=== PATIENT | female | born 1970 | race Caucasian/White ===

== ENCOUNTER 2018-11-15 15:33 | Emergency (ER) | payer OTHER ==
[~2018-11-15] VITALS: Ht 165.1 cm; Wt 57.4 kg
[2018-11-15 15:43] VITALS: Ht 165.1 cm; Wt 57.4 kg
--- NOTE | 2018-11-15 17:38 | ERD ---
ER Documentation Chief Complaint Chief Complaint lower back pain s/p fall off step stool, hit back on stool HPI 47-year-old female, previously healthy, presents to the emergency department, complaining of sacrococcygeal pain after falling from a chair 3 days ago. The patient has been taking ibuprofen without improvement of the symptoms, the pain is dull, constant, 6/10. The patient also reports a painful lump in the anal area that has been there for more than 1 week. The patient reports history of hemorrhoids. She denies fever, chills, no distal weakness, no rectal bleeding. ROS All systems reviewed and are negative except as per history of present illness. Medications Home Meds Active Scripts Hydrocortisone* Topical (Hydrocortisone* Topical) 2.5%-28.3 Gm Cream..g., 1 APPLIC TOP BID for 7 Days, #1 TUB Prov:EZ READ MD 11/15/18 Ibuprofen* (Motrin*) 600 Mg Tab, 600 MG PO Q6H PRN for PAIN AND OR ELEVATED TEMP, #20 TAB Prov:EZ READ MD 11/15/18 Allergies Allergies: Coded Allergies: No Known Allergy (Unverified , 11/15/18) PMhx/Soc Medical and Surgical Hx: pt denies Medical Hx, pt denies Surgical Hx History of Surgery: Yes (Breast augmentation) Anesthesia Reaction: No Hx Neurological Disorder: No Hx Respiratory Disorders: No Hx Cardiac Disorders: No Hx Psychiatric Problems: No Hx Miscellaneous Medical Probl: No Hx Alcohol Use: No Hx Substance Use: No Hx Tobacco Use: No Smoking Status: Never smoker FmHx Family History: No diabetes, No coronary disease Physical Exam Vitals Vital Signs Date Temp Pulse Resp B/P (MAP) Pulse Ox O2 O2 Flow FiO2 Time Delivery Rate 11/15/18 98.8 59 18 11/54 (40) 97 15:43 Physical Exam Patient is in no acute distress, vital signs stable. Alert and fully oriented. EYES: PERRLA, EOMI, Sclera and conjunctiva appear normal. EARS: Canals clear, tympanic membranes WNL THROAT: Normal oropharynx. NECK: Supple, No lymphadenopathy. Full ROM without pain or tenderness. HEART: RRR, no rubs, murmurs, clicks or gallops. LUNGS: Clear to auscultation. ABDOMEN: Soft, non-tender without masses or hepatosplenomegaly. Rectal: 1cm lump without thrombosis. EXTREMITIES: No edema bilaterally. BACK: Normal inspection, no bruises, no rashes, no deformity, decreased range of motion for lateral rotation and flexion. No vertebral tenderness, bilateral lower muscle spasm. NEURO: Cranial nerves grossly intact, no motor or sensory deficit Results 24 hrs Laboratory Tests Test 11/15/18 17:47 POC Beta HCG, Qualitative NEGATIVE Patient: ERIC MCKEON : 1970 Age: 47 Sex: F MR #: [id number] Merged With [facility] #: [id number] DOS: 11/15/18 1733 Ordering MD: EZ READ MD Location: [facility]TE Room/Bed: PROCEDURE: XR Sacrum. CLINICAL INDICATION: Sacral pain. TECHNIQUE: AP, inlet and lateral views of the sacral spine were performed. The images were reviewed on a PACS workstation. COMPARISON: None available FINDINGS: The sacroiliac joints are normal in appearance. There is no joint space widening, narrowing or erosive changes. There is no significant subchondral sclerosis. The sacrum and sacral ala intact. The visualized pelvic bones unremarkable. There is no evidence of fracture. IMPRESSION: 1. Normal radiographs of the sacrum. No evidence of fracture. Procedures/MDM At the time of discharge, patient nontoxic, ambulating, vital signs stable, no gross neurologic deficit. differential diagnosis include but not limited to: lumbar sprain/strain, sciatica, herniated disk, UTI less likely pyelo, kidney stone. Neurovascular exam grossly intact. no clinical findings suggestive of acute infectious process, no acute deformity, no edema, no rashes. Physical examination and clinical presentation consistent most likely with contusion of the sacrococcygeal area and nonthrombosed hemorrhoid. Results and clinical impression discussed with the patient who agrees with management. The patient is stable to be treated outpatient and will be discharged home with recommendations and close monitoring The patient was informed that the evaluation in the emergency department has been done to rule out an acute emergency, therefore, chronic conditions like malignancy or autoimmune diseases have not been evaluated; therefore, the patient was instructed to follow up with the primary care provider in the next 48h. If symptoms persist, worsen or new symptoms develop, then patient should return to the ED immediately. Instructions explained and given to patient with acknowledgment and demonstrated understanding. Disclaimer: Inadvertent spelling and grammatical errors are likely due to EHR/dictation software use and do not reflect on the overall quality of patient care. Also, please note that the electronic time recorded on this note does not necessarily reflect the actual time of the patient encounter. Departure Diagnosis: Primary Impression: Hemorrhoid Additional Impression: Contusion of sacrococcygeal region Condition: Stable Additional Instructions: Muchas janine por [facility] para [place] servicio. Esperamos que en [place] visita a la rodolfo de emergencia [place] problema medico haya sido solucionado y que se sienta mucho mejor. Para estar seguros que [place] mejoria sigue en proceso, le pedimos el favor de hacer [place] cele de seguimiento medico con [place] doctor primario en los proximos 2-4 pride. Lleve con usted estos documentos y las medicinas recetadas. Si peter sintomas empeoran, NO SE ESPERE, por favor regrese a rodolfo de emergencia INMEDIATAMENTE. En adina que usted no tenga un mdico de atencin primaria: Llame al mdico o clnica comunitaria de referencia que aparece abajo [place] las horas de consultorio para hacer [place] cele para que le vean. CLINICAS: [facility] [phone] [facility] [phone] [facility] [phone] [facility] [phone] [facility] [id number] [facility]. [phone] MD Nov 15, 2018 17:38
[2018-11-15] MEDS ORDERED: IBUP-1542 PO (18:55)
[2018-11-15] MEDS ORDERED: HC30CR25 TOP (18:55)
[2018-11-15 19:19] VITALS: BP 112/60; PULSE 78; RESP 19
== END 2018-11-15 19:20 | disposition home or self-care (01) ==
LOC: FTE 15:33
DX: S30.0XXA Contusion of lower back and pelvis, initial encounter (principal); K64.9 Unspecified hemorrhoids; W07.XXXA Fall from chair, initial encounter; Y92.9 Unspecified place or not applicable
CPT/HCPCS: 72220; 81025; Z7502